=== PATIENT | female | born 1945 | race Caucasian/White ===

== ENCOUNTER 2017-02-05 01:43 | Emergency (ER) | payer MEDICAID, MEDICARE ==
[2017-02-05 02:16] LABS: #Basophils 0.1 thou/uL (0.0-0.2); #Lymphocytes 0.7 thou/uL (1.20-3.40); #Monocytes 0.5 thou/uL (0.11-0.59); #Neutrophils 12.2 thou/uL (1.40-6.50); %Basophils 0.4 % (0.0-1.0); %Eosinophils 0.1 % (0.0-10.0); %Monocytes 3.8 % (0.0-10.0); %Neutrophils 90.7 % (42.0-75.0); Hemoglobin 13.8 g/dL (12.0-16.0); Mean Corpuscular HGB CONC 33.9 g/dL (32.0-36.0); Mean Corpuscular Volume 91.4 fl (81.0-99.0); Mean Platelet Volume 6.5 fL (7.4-10.4); Platelet Count 239 thou/uL (130-400); RBC Distribution Width 11.9 % (11.5-14.5); Red Blood Cell (RBC) Count 4.44 mill/uL (4.20-5.40); White Blood Cell (WBC) Count 13.5 thou/uL (4.8-10.8)
[2017-02-05] MEDS ORDERED: Piperacillin/Tazobactam 4.5 GM VIAL ONE (02:20)
[2017-02-05 02:37] LABS: ALT (SGPT) 13 U/L (8-55); AST (SGOT) 16 U/L (5-34); Albumin 3.8 g/dL (3.4-4.8); Alkaline Phosphatase 93 U/L (40-150); Anion Gap 17 mmol/L (10-20); BUN (Urea Nitrogen) 20 mg/dL (9.8-20.1); Bilirubin, Total 0.9 mg/dL (0.2-1.2); Calc. Creatinine Clearance 0 mL/min (70-130); Calcium 9.1 mg/dL (7.8-10.44); Carbon Dioxide 24 mmol/L (23-31); Chloride 103 mmol/L (98-107); Estimated GFR-MDRD 60; Glucose 123 mg/dL (80-115); Protein, Total 7.8 g/dL (6.0-8.3); Sodium 141 mmol/L (136-145)
[2017-02-05 02:43] LABS: Potassium 2.8 mmol/L (3.5-5.1)
[2017-02-05 02:49] LABS: Bilirubin Small (Negative); Blood, Urine Moderate (Negative); Clarity Clear (Clear); Glucose, Urine (Dipstick) Negative (Negative); Leukocyte Negative (Negative); Nitrite Negative (Negative); Protein, Urine (Dipstick) 100 mg/dL (Neg-Trace); pH, Urine 5.5 (5.0-9.0)
[2017-02-05 02:52] LABS: RBC/HPF 0-3 HPF (0-3)
[2017-02-05 02:53] LABS: Bacteria/HPF None Seen HPF (None Seen)
[2017-02-05] MEDS ORDERED: Acetaminophen 500 MG TAB ONE (03:14)
[2017-02-05] MEDS ORDERED: Enoxaparin Sodium 60 MG/0.6 ML SYRINGE ONE (03:14)
[2017-02-05] MEDS ORDERED: Ibuprofen 800 MG TAB ONE (03:14)
[2017-02-05] MEDS ORDERED: Enoxaparin Sodium 40 MG/0.4 ML SYRINGE ONE (03:14)
--- NOTE | 2017-02-05 08:30 | RAD ---
PORTABLE CHEST ONE VIEW: 02/05/2017 at 1:58 a.m. HISTORY: Fever, dizziness, and vomiting. FINDINGS: The heart size is enlarged. No focal areas of consolidation, pneumothorax, adri pleural edema, or p leural effusions are seen. IMPRESSION: No acute process. POS: [facility]
[2017-02-05 11:59] LABS: Hemoglobin A1c 5.1 % (4.0-6.0)
[2017-02-05] MEDS ORDERED: Sodium Chloride 0.9% 1,000 ML BAG ONE (12:26)
[2017-02-05] MEDS ORDERED: Sodium Chloride 0.9% 100 ML BAG ONE (12:26)
== END 2017-02-05 03:35 | disposition short-term general hospital (02) ==
LOC: MADERS 01:43
DX: A41.9 Sepsis, unspecified organism (principal); L03.115 Cellulitis of right lower limb; N39.0 Urinary tract infection, site not specified; I11.0 Hypertensive heart disease with heart failure; I50.9 Heart failure, unspecified; E87.6 Hypokalemia; E66.01 Morbid (severe) obesity due to excess calories; I48.91 Unspecified atrial fibrillation; I51.7 Cardiomegaly; Z79.82 Long term (current) use of aspirin
CPT/HCPCS: 71010; 80053; 81001; 83036; 83605; 83880; 85025; 85652; 86140; 87040; 87086; 87149; 96365; 96368; 96372; J1650; J2543; J3370; J7050